=== PATIENT | male | born 2000 | race Two or more races ===

== ENCOUNTER 2024-09-20 19:07 | Emergency (ER) | payer OTHER ==
[~2024-09-20] VITALS: Ht 180.3 cm; Wt 75.0 kg
[2024-09-21] MEDS: NALOXONE HCL 0.4 MG/ML VIAL IV ONE (02:08)
[2024-09-21] MEDS: SODIUM CHLORIDE 0.9% 2,000 ML IV ONE (02:08)
[2024-09-21] MEDS: LORazepam 2MG/ML-1ML VIAL IV ONE (02:08)
[2024-09-21 02:14] VITALS: BP 127/90; PULSE 75; RESP 20; TEMP 98.8; O2SAT 96
--- NOTE | 2024-09-21 02:25 | ED.PDOC ---
History of Present Illness HPI Comments This patient is a 23-year-old male who arrives to the ED today via EMS due to alcohol and methamphetamine abuse. Patient initially complained of body pains, but at time of evaluation states he had no pain. Patient appears intoxicated and inebriated. Chief Complaint: Body Pain Time Seen by MD: 19:19 Primary Care Provider: unknown Reviewed Notes: Nurses Notes, Switchboard Receptionist Notes Allergies: Coded Allergies: NO KNOWN ALLERGIES (Unverified , 09/20/24) Information Source: Patient, Emergency Med Personnel Mode of Arrival: EMS Severity: Moderate Timing: Days Duration: Since onset Prehospital treatment: None Past Medical History PAST MEDICAL HISTORY: Denies Surgical History: Denies all surgeries Family History Family History: Reviewed,noncontributory to illness, No family hx of Cancer, No family hx of DM, No family hx of Heart gautam, No family hx of HTN, No family hx o fKidney gautam, No family hx of Liver gautam, No family hx of Lung gautam, No family hx of Stroke Social History Smoker: Non-Smoker Alcohol: Heavy Drugs: Methamphetamine Lives In: Homeless Constitutional: denies: chills, diaphoresis, fatigue, fever, malaise, sweats, weakness, others EENTM: denies: blurred vision, double vision, ear bleeding, ear discharge, ear drainage, ear pain, ear ringing, eye pain, eye redness, hearing loss, mouth pain, mouth swelling, nasal discharge, nose bleeding, nose congestion, nose pain, photophobia, tearing, throat pain, throat swelling, voice changes, others Respiratory: denies: cough, hemoptysis, orthopnea, SOB at rest, shortness of breath, SOB with excertion, stridor, wheezing, others Cardiovascular: denies: chest pain, dizzy spells, diaphoresis, Dyspnea on exertion, edema, irregular heart beat, left arm pain, lightheadedness, palpitations, PND, syncope, others Gastrointestinal: denies: abdomen distended, abdominal pain, blood streaked bowels, constipated, diarrhea, dysphagia, difficulty swallowing, hematemesis, melena, nausea, poor appetite, poor fluid intake, rectal bleeding, rectal pain, vomiting, others Genitourinary: denies: burning, dysuria, flank pain, frequency, hematuria, incontinence, penile discharge, penile sore, pain, testicle pain, testicle swell ing, urgency, others Neurological: denies: dizziness, fainting, headache, left sided numbness, left sided weakness, numbness, paresthesia, pre-existing deficit, right sided numbness, right sided weakness, seizure, speech problems, tingling, tremors, weakness, others Musculoskeletal: denies: back pain, gout, joint pain, joint swelling, muscle pain, muscle stiffness, neck pain, others Integumetry: denies: bruises, change in color, change in hair/nails, dryness, laceration, lesions, lumps, rash, wounds, others Allergic/Immunocompromised: denies: Difficulty Healing, Frequent Infections, Hives, Itching, others Hematologic/Lymphatic: denies: anemia, blood clots, easy bleeding, easy bruising, swollen glands, others Endocrine: denies: excessive hunger, excessive sweating, excessive thirst, excessive urination, flushing, intolerance to cold, intolerance to heat, unexplained weight gain, unexplained weight loss, others Psychiatric: denies: anxiety, bipolar disorder, depression, hopeless, panic disorder, schizophrenia, sleepless, suicidal, others Unable to Obtain due to: Altered Mental Status (Due to alcohol and methamphetamine) Physical Exam General Appearance: Moderate Distress (Moderate distress due to altered mental status.), Normal HEENT: Normal ENT Inspection, Pharynx Normal, TMs Normal Neck: Full Range of Motion, Non-Tender, Normal, Normal Inspection Respiratory: Chest Non-Tender, Lungs Clear, No Accessory Muscle Use, No Respiratory Distress, Normal Breath Sounds Cardiovascular: No Edema, No JVD, No Murmur, No Gallop, Normal Peripheral Pulses, Regular Rate/Rhythm Breast Exam: Deferred Gastrointestinal: No Organomegaly, Non Tender, No Pulsatile Mass, Normal Bowel Sounds, Soft Genitalia: Deferred Pelvic: Deferred Rectal: Deferred Extremities: No calf tenderness, Normal capillary refill, Normal inspection, Normal range of motion, Non-tender, No pedal edema Neurologic: Alert, No Motor Deficits, No Sensory Deficits Cerebellar Function: NOT DONE Reflexes: NOT DONE Skin: Dry, Normal Color, Warm Lymphatic: No Adenopathy Was a procedure done? Was a procedure done?: No Differential Dx Considerations may include: Alcohol abuse, illicit drug abuse X-Ray, Labs, Meds, VS Vital Signs Date Time Temp Pulse Resp B/P (MAP) Pulse Ox O2 Delivery O2 Flow Rate FiO2 1/4/25 02:14 98.8 75 20 127/90 (102) 96 98.8 09/20/24 19:09 97.7 107 18 130/72 (91) 98 Current Medications Medications (Trade) Dose Ordered Sig/Alex Route Start Time Stop Time Status Last Admin Lorazepam (Ativan Inj) 1 mg PRN ONCE IV 09/20/24 19:30 09/20/24 19:48 DC 09/21/24 02:08 X-Ray, Labs, Meds, VS Comment Patient was provided with fluids and additional medication and will be discharged from the facility once stable. Time of 1ST Reevaluation: 02:23 Reevaluation 1ST: Improved Consultation: PCP Patient Education/Counseling: Diagnosis, Treatment Family Education/Counseling: Diagnosis, Treatment Departure 1 Departure Time of Disposition: 02:24 Impression: Primary Impression: Alcohol abuse Additional Impression: Methamphetamine abuse Disposition: 01 HOME / SELF CARE / HOMELESS Condition: Fair Discharged With: Self Critical Care Note Critical Care Time?: No Stability Stability form required: No Heart Score Heart Score: Heart Score Response (Comments) Value History N/A 0 EKG N/A 0 Age N/A 0 Risk Factors N/A 0 Troponin N/A 0 Total 0 PALLAVI MA PAC Sep 21, 2024 02:25
[2024-09-22] MEDS ORDERED: OLAN20TA PO (01:31)
== END 2024-09-21 03:15 | disposition home or self-care (01) ==
LOC: ER 19:07 → EDBD 19:07 → ER 09-21 03:15
DX: F10.10 Alcohol abuse, uncomplicated (principal); F15.10 Other stimulant abuse, uncomplicated; Z59.00 Homelessness unspecified; Y90.9 Presence of alcohol in blood, level not specified
CPT/HCPCS: 96374; 99283; J2060

== ENCOUNTER 2024-09-21 12:24 | Inpatient (IN) | payer OTHER ==
[~2024-09-21] VITALS: Ht 182.9 cm; Wt 70.5 kg
--- NOTE | 2024-09-21 13:14 | ED.PDOC ---
Musculoskeletal HPI Comments HPI: Poor Historian. 23 Y M ELIEZER with PMHX of HIV, Schizophrenia, ADD, and Depression presents to the ED with CC of right arm weakness. Per, EMS patient called EMS from across that street from hospital and c/o right arm weakness and inability to move arm properly. Patient was [facility] seen at [facility] on 09/[facility]24 for DX: Methamphetamine abuse/ ETOH abuse. Patient denies using any illicit drugs or consumption of ETOH since last discharge. Patient denies chills, body aches, fever, or N/V/D. Patient is noncompliant with any of his medications. Patient is able to raise bilateral upper extremities against gravity and hold it. Decreased muscle strength on the right wrist. Patient is neurovascularly intact in the affected extremity. Radial pulses palpable. Later I inquired with the PA who saw the patient Dimitri. He said that when he saw the patient he also had some right upper extremity decreased motor and they suspected a arm nerve palsy. He observed the patient in the ED and said that the symptoms have resolved and he was then discharged home. VITALS: T:98.0 HR:84 RR:20 O2:98 BP:106/72 SOCIAL HX: DENIES TOBACCO USAGE YES TO ETOH CONSUMPTION YES TO ILLICIT DRUG USE SHX: DENIES ALL PMHX: HIV, Schizophrenia, ADD, and Depression, polysubstance abuse ALLERGIES: NKA REVIEW OF SYSTEMS: CONSTITUTIONAL: Denies acute: fever, diaphoresis, chills, generalized weakness. HEAD: Denies acute: headache, photophobia Eyes: Denies acute: Double vision, vision loss, eye pain, eye discharge. EARS: Denies acute: tinnitus, hearing loss, ear discharge, ear pain, THROAT: Denies acute: sore throat, swelling, difficulty swallowing , pain with swallowing, change in voice. NECK: Denies acute: neck pain, neck swelling, stiff neck. HEART: Denies acute : chest pain, palpitations, LUNGS: Denies acute: SOB, wheezing, cough, hemoptysis ABDOMEN: Denies acute: abdominal pain, Nausea, Vomiting, diarrhea, melena , hematemesis, hematochezia SKIN: Denies acute: rash, redness, lesions, itchiness. EXTREMITIES: Denies acute: calf pain, numbness, tingling, weakness, denies pain in extremity. Denies acute: Low back pain. Neuro: Denies acute: motor or sensory focal neurological deficit, tremors, seizure like activity, confusion, dizziness, change in mental status, loss of bowel or bladder function, cauda equina like symptoms. : Denies acute: dysuria, hematuria, flank pain, increase in urinary frequency. PSYCH: Denies acute: hallucination, suicidal ideation, homicidal ideation. PHYSICAL EXAM: General: no acute distress, awake and alert. Head: normocephalic, atraumatic. Neck: supple, trachea is midline, no swelling. Throat: Normal phonation. Eyes:, no erythema, no purulent discharge, no proptosis, no icterus. Heart: regular rate, regular rhythm, no significant murmur appreciated. Lungs: no apparent respiratory distress, Able to speak in full sentences. No wheezing, no rhonchi, no crackles. No stridors Clear to auscultation bilaterally. Abdomen: non tender to palpation, non distended, soft, no guarding, no rebound, + bowel sounds. Neuro: Awake, Alert, oriented to name, self, situation, follows commands GCS=15. Speech is normal. Skin: no petechia, no purpura, no cyanosis, non-pale, not jaundice. Lower extremities: --no - Pitting edema no deformity, no focal swelling, no calf TTP. Makes eye contact. moves all four extremities. Face: no apparent facial droop. Ambulating in the ED independently. Stroke: No pronator drift. PERRLA, EOM-I CN 2-12 are grossly intact, No nystagmus. No nuchal rigidity, Kernig's sign, Brudzinski's sign, no meningeal signs. Chief Complaint: Upper Extremity Time Seen by MD: 12:30 Primary Care Provider: NONE Reviewed Notes: Nurses Notes, Medications, Allergies Allergies: Coded Allergies: NO KNOWN ALLERGIES (Unverified , 09/20/24) Information Source: Patient Mode of Arrival: EMS Location: Right Was a procedure done? Was a procedure done?: No X-Ray, Labs, Meds, VS Vital Signs Date Time Temp Pulse Resp B/P (MAP) Pulse Ox O2 Delivery O2 Flow Rate FiO2 09/21/24 21:44 97.4 78 16 117/25 (55) 98 97.4 09/21/24 12:35 97.8 84 20 106/72 (83) 98 Lab Test 09/21/24 12:57 Range/Units White Blood Count 6.2 4.4-10.8 10^3/uL Red Blood Count 4.27 L 4.5-5.90 10^6/uL Hemoglobin 12.2 L 13.5-17.5 g/dL Hematocrit 36.1 L 41.0-53.0 % Mean Corpuscular Volume 84.5 80.0-100.0 fL Mean Corpuscular Hemoglobin 28.5 28.0-32.0 pg Mean Corpuscular Hemoglobin Concent 33.7 32.0-36.0 g/dL Red Cell Distribution Width 16.2 H 11.8-14.3 % Platelet Count 235 140-450 10^3/uL Mean Platelet Volume 7.8 6.9-10.8 fL Neutrophils (%) (Auto) 39.9 37.0-80.0 % Lymphocytes (%) (Auto) 39.4 10.0-50.0 % Monocytes (%) (Auto) 12.1 H 0.0-12.0 % Eosinophils (%) (Auto) 7.7 H 0.0-7.0 % Basophils (%) (Auto) 0.9 0.0-2.0 % Neutrophils # (Auto) 2.5 1.6-8.6 10 ^3/uL Lymphocytes # (Auto) 2.5 0.4-5.4 10 ^3/uL Monocytes # (Auto) 0.8 0-1.3 10 ^3/uL Eosinophils # (Auto) 0.5 0-0.8 10 ^3/uL Basophils # (Auto) 0.1 0-0.2 10 ^3/uL Nucleated Red Blood Cells 0.1 % Sodium Level 138 136-145 mmol/L Potassium Level 3.6 3.5-5.1 mmol/L Chloride Level 105 98-107 mmol/L Carbon Dioxide Level 26 20-31 mmol/L Anion Gap 7 5-15 Blood Urea Nitrogen 18 9-23 mg/dL Creatinine 1.01 0.700-1.30 mg/dL Glomerular Filtration Rate Calc 106 >90 mL/min BUN/Creatinine Ratio 17.8 10.0-20.0 Serum Glucose 116 H 74-106 mg/dL Lactic Acid Level 1.5 0.4-2.0 mmol/L Calcium Level 8.9 8.7-10.4 mg/dL Magnesium Level 2.0 1.6-2.6 mg/dL Total Bilirubin 0.8 0.2-1.0 mg/dL Aspartate Amino Transferase (AST) 267 H 13-40 U/L Alanine Aminotransferase (ALT) 440 H 7-40 U/L Alkaline Phosphatase 143 H 46-116 U/L Creatine Kinase 600 H 46-171 U/L Total Protein 7.6 5.7-8.2 g/dL Albumin 3.5 3.2-4.8 g/dL Plasma/Serum Blood Alcohol < 3.0 <10 mg/dL [place] [address] Ph: [phone] DIAGNOSTIC IMAGING Diagnostic Imaging Report : [id number] Signed PATIENT: ANSHU MÁRQUEZ ACCT: [id number] UNIT: [id number] : 2000 LOC: ER ROOM / BED: / AGE / SEX: 23 / M ADM STATUS: REG ER SERVICE 1244 ORDERING PHYSICIAN: MURRAY MOORE DO PROCEDURE(s): RWRI - R WRIST 3+ VIEW XRAY REASON: weak ORDER NUMBER(s): [id number], ACCESSION NUMBER(s): [id number] EXAM: XY R WRIST 3+ VIEW XRAY CLINICAL HISTORY: weak COMPARISON: None TECHNIQUE: XY R WRIST 3+ VIEW XRAY Findings/Impression: 3 views of the right wrist. There is no evidence of an acute fracture, dislocation, blastic, or lytic lesions. No radiopaque foreign bodies. No joint effusion or superficial soft tissue abnormalities. ATED BY: CAREN ZELAYA DO DICTATED DATE/TIME: 09/21/241423 SIGNED BY: CAREN ZELAYA DO SIGNED DATE/TIME: 09/21/24 142 CC: Time of 1ST Reevaluation: 01:00 Reevaluation 1ST: Unchanged Patient Education/Counseling: Diagnosis, Treatment Family Education/Counseling: No Family Present Comments Patient presented with --------- patient was found with the above mentioned diagnosis. the following medications were ordered: the following tests were ordered: Patient ED course and VS have been stabilized. Patient has been reassessed in the ED and remained in a stable condition. Pertinent incidental findings were discussed with the patient and/or family. Patient/family voices understanding and is agreeable with plan. Patient has been observed in the ED adequate length of time to insure improvement/stability. Escalation of care considered: Consideration of escalation to observation or admission Patient was ADMITTED to the medicine team for further evaluation and treatment of their presentation. Patient was discharged. All the reports of any imaging studies that were ordered by myself were reviewed by myself. Departure 1 Departure Time of Disposition: 19:23 Impression: Primary Impression: Radial nerve palsy Additional Impressions: Right arm weakness Elevated LFTs Rhabdomyolysis Disposition: ADMITTED INPATIENT Admit to: Tele Condition: Guarded Additional Instructions: [place] [address] Ph: [phone] DIAGNOSTIC IMAGING Diagnostic Imaging Report : [id number] Signed PATIENT: ANSHU MÁRQUEZ ACCT: [id number] UNIT: [id number] : 2000 LOC: ER ROOM / BED: / AGE / SEX: 23 / M ADM STATUS: REG ER SERVICE 1244 ORDERING PHYSICIAN: MURRAY MOORE DO PROCEDURE(s): RWRI - R WRIST 3+ VIEW XRAY REASON: weak ORDER NUMBER(s): [id number], ACCESSION NUMBER(s): [id number] EXAM: XY R WRIST 3+ VIEW XRAY CLINICAL HISTORY: weak COMPARISON: None TECHNIQUE: XY R WRIST 3+ VIEW XRAY Findings/Impression: 3 views of the right wrist. There is no evidence of an acute fracture, dislocation, blastic, or lytic lesions. No radiopaque foreign bodies. No joint effusion or superficial soft tissue abnormalities. ATED BY: CAREN ZELAYA DO DICTATED DATE/TIME: 09/21/241423 SIGNED BY: CAREN ZELAYA DO SIGNED DATE/TIME: 09/21/241423 CC: Discharged With: Self Stability Stability form required: No I personally scribed for MURRAY MOORE DO ([email or web address]) on 09/21/24 at 13:14. Electronically submitted by Jayne Villa ([email or web address]). I personally scribed for MURRAY MOORE DO ([email or web address]) on 09/21/24 at 14:33. Electronically submitted by Jayne Villa ([email or web address]). MURRAY MOORE DO Sep 21, 2024 13:14
[2024-09-21 13:16] LABS: Basophils # (auto) 0.1 10 ^3/uL (0-0.2); Basophils % (auto) 0.9 % (0.0-2.0); Eosinophils # (auto) 0.5 10 ^3/uL (0-0.8); Eosinophils % (auto) 7.7 % (0.0-7.0); Hematocrit 36.1 % (41.0-53.0); Hemoglobin 12.2 g/dL (13.5-17.5); Lymphocytes # (auto) 2.5 10 ^3/uL (0.4-5.4); Lymphocytes % (auto) 39.4 % (10.0-50.0); Mean Corpuscular Hemoglobin 28.5 pg (28.0-32.0); Mean Corpuscular Hgb Conc. 33.7 g/dL (32.0-36.0); Mean Corpuscular Volume 84.5 fL (80.0-100.0); Monocytes # (auto) 0.8 10 ^3/uL (0-1.3); Monocytes % (auto) 12.1 % (0.0-12.0); Neutrophils # (auto) 2.5 10 ^3/uL (1.6-8.6); Neutrophils % (auto) 39.9 % (37.0-80.0); Nucleated Red Blood Cells % 0.1 %; Platelet Count (auto) 235 10^3/uL (140-450); Red Blood Cells 4.27 10^6/uL (4.5-5.90); Red Cell Distribution Width 16.2 % (11.8-14.3); White Blood Cell 6.2 10^3/uL (4.4-10.8)
[2024-09-21 13:33] LABS: Albumin 3.5 g/dL (3.2-4.8); Anion Gap 7 (5-15); BUN/Creatinine Ratio 17.8 (10.0-20.0); Blood Urea Nitrogen 18 mg/dL (9-23); Calcium 8.9 mg/dL (8.7-10.4); Carbon Dioxide 26 mmol/L (20-31); Chloride 105 mmol/L (98-107); Potassium 3.6 mmol/L (3.5-5.1); Sodium 138 mmol/L (136-145)
[2024-09-21 13:34] LABS: Bilirubin, Total 0.8 mg/dL (0.2-1.0); Total Protein 7.6 g/dL (5.7-8.2)
[2024-09-21 13:37] LABS: Alanine Aminotransferase 440 U/L (7-40); Alkaline Phosphatase 143 U/L (46-116); Aspartate Aminotransferase 267 U/L (13-40); Blood Alcohol < 3.0 mg/dL (<10); Creatine Kinase IFCC 600 U/L (46-171); Glucose 116 mg/dL (74-106)
--- NOTE | 2024-09-21 14:26 | DVH ---
EXAM: XY R WRIST 3+ VIEW XRAY CLINICAL HISTORY: weak COMPARISON: None TECHNIQUE: XY R WRIST 3+ VIEW XRAY Findings/Impression: 3 views of the right wrist. There is no evidence of an acute fracture, dislocation, blastic, or lytic lesions. No radiopaque foreign bodies. No joint effusion or superficial soft tissue abnormalities.
--- NOTE | 2024-09-21 16:28 | DVH ---
EXAM: CT HEAD WITHOUT CONTRAST INDICATION: R arm palsy TECHNIQUE: CT of the head without intravenous contrast. Radiation Dose Information: CT Dose: CTDI volume is 56.9 mGy. Dose-length product is 912.09 mGy*cm The dose indicators for CT are the volume Computed Tomography (CT) Dose Index (CTDIvol) and the Dose Length Product (DLP), and are measured in units of mGy and mGy-cm, respectively. These indicators are not patient dose, but values generated from the CT scanner acquisition factors. The report includes radiation exposure data for exposures received during this examination. COMPARISON: None FINDINGS: There is no evidence of acute intracranial hemorrhage, extra-axial collection, mass effect, midline s hift, herniation or hydrocephalus. The ventricles, sulci and cisterns are age appropriate. The ortiz-white differentiation is intact. Patchy periventricular and subcortical white matter hypoattenuation is nonspecific but may be related to small vessel ischemic disease. The visualized paranasal sinuses and mastoid air cells are clear. The surrounding soft tissues and osseous structures are unremarkable. IMPRESSION: 1. No acute intracranial hemorrhage. 2. No CT findings of territorial ischemia. HS:Y
--- NOTE | 2024-09-21 16:33 | DVH ---
HS:Y EXAM: CT CERVICAL WITHOUT CONTRAST INDICATION: R arm palsy EXAM DATE: 09/21/2024 04:09 PM COMPARISON: None TECHNIQUE: Multiple axial CT images of the cervical spine were obtained using bone algorithm. Axial a nd coronal reformatting was done. Bone and soft tissue windows were reviewed. Radiation Dose Information: CT Dose: CTDI volume is 22.92 mGy. Dose-length product is 556.25 mGy*cm FINDINGS: The cervical alignment is intact. No acute cervical spine fracture is identified. The vertebral body heights are intact. No suspicious osseous lesions are identified. There is reversal of the normal cervical lordotic curve. No significant degenerative changes are identified. There is no prevertebral soft tissue swelling. IMPRESSION: 1. No evidence of acute cervical spine fracture or traumatic malalignment. 2. Reversal of the normal cervical lordotic curve. All CT scans at this medical facility are performed using dose modulation techniques as appropriate t o a performed exam including the following: Automated exposure control was utilized; adjustment of th e MA and/or KV according to patient size; and use of iterative reconstruction technique. HS:Y
[2024-09-21] MEDS: SODIUM CHLORIDE 0.9% 1,000 ML IV ONE (17:46)
[2024-09-21] MEDS ORDERED: IBUPROFEN 600 MG TAB PO PRN (20:45)
[2024-09-21] MEDS ORDERED: ONDANSETRON HCL 4 MG/2 ML VIAL IV PRN (20:45)
[2024-09-21] MEDS ORDERED: MORPHINE SULFATE INJ 2 MG/ml SYRG IV PRN ×2 (20:45→23:00)
[2024-09-21] MEDS ORDERED: DOCUSATE SOD 100 MG CAP PO PRN (20:45)
[2024-09-21] MEDS ORDERED: HYDROcodone-ACET 5/325MG TAB PO PRN (20:45)
[2024-09-21] MEDS: SODIUM CHLORIDE 0.9% 1,000 ML IV SCH (20:45)
--- NOTE | 2024-09-21 22:51 | DVHHP2 ---
History of Present Illness Reason for Visit: Right arm weakness History of Present Illness The patient is a 23-year-old male with past medical history of HIV, ADD, schizophrenia, polysubstance abuse, and depression who presented to [facility] ED with complaint of right arm weakness. As reported by EMS, patient called across the street from the hospital complaining of right arm weakness and inability to move and properly. Patient was last seen at [facility], on 09/20/24 for diagnosis of Methamphetamine abuse and ETOH abuse. Patient was seen and evaluated in the ED, laboratory data shows WBC 6.2, platelets 235, sodium 138, potassium 3.6, BUN 18, creatinine 1.01, GFR 106, glucose 116, AST 267, ALT 440, CK 600, blood pressure 106/72, heart rate 84, temperature 97.8 F, O2 saturation 98% on room air. Head CT showed no acute intracranial hemorrhage. Please see medication orders section in the computer. On my assessment, patient denies chest pain, no headache, no dizziness, no diaphoresis, no shortness of breaths, no nausea, no vomiting, no fever, no chills. Patient was admitted for further evaluation and medical management. Past Medical History HIV, Schizophrenia, ADD, Depression, polysubstance abuse Past Surgical History Denies all surgeries Family History Reviewed, noncontributory to the management of this case. Past Social History The patient lives at home, denies smoking, alcohol or illicit drugs abuse. Review of Systems Constitutional: No: Fever, Chills, Sweats, Weakness, Malaise, Other Eyes: No: Pain, Vision change, Conjunctivae inflammation, Eyelid inflammation, Other, Redness ENT: No: Ear pain, Ear discharge, Nose pain, Nose discharge, Nose congestion, Mouth pain, Mouth swelling, Throat pain, Throat swelling, Other Respiratory: No: Cough, Dry, Shortness of breath, SOB with excertion, Wheezing, Hemoptysis, Pleuritic Pain, Sputum, Wheezing, Other Cardiovascular: No: Chest Pain, Palpitations, Orthopnea, Paroxysmal Noc. Dyspnea, Edema, Lt Headedness, Other Gastrointestinal: No: Nausea, Vomiting, Abdominal Pain, Diarrhea, Constipation, Melena, Hematochezia, Other Genitourinary: No Dysuria, No Frequency, No Incontinence, No Hematuria, No Retention, No Other Musculoskeletal: other (Right arm weakness); No: neck pain, shoulder pain, arm pain, back pain, hand pain, leg pain, foot pain Skin: No: Rash, Lesions, Jaundice, Bruising, Other Neurological: No: Weakness, Numbness, Incoordination, Change in speech, Confusion, Seizures, Other Allergies: Coded Allergies: NO KNOWN ALLERGIES (Unverified , 09/20/24) Medications Current Medications Medications Dose Ordered Sig/Alex Route Start Time Stop Time Status Last Admin Dose Admin Sodium Chloride 1,000 ml @ 60 mls/hr [id number] IV 09/21/24 20:45 Acetaminophen/ Hydrocodone Bitart 1 tab Q4HP PRN PO 09/21/24 20:45 Ondansetron HCl 4 mg Q4HP PRN IV 09/21/24 20:45 Docusate Sodium 100 mg BIDPRN PRN PO 09/21/24 20:45 Morphine Sulfate 2 mg Q4HPRN PRN IV 09/21/24 20:45 Ibuprofen 600 mg Q6HP PRN PO 09/21/24 20:45 Exam Vital Signs Vital Signs Date Time Temp Pulse Resp B/P (MAP) Pulse Ox O2 Delivery O2 Flow Rate FiO2 09/21/24 21:44 97.4 78 16 117/25 (55) 98 97.4 General Appearance: Alert, Oriented X3, Cooperative, No acute distress HEENT: Atraumatic, PERRLA, EOMI, Mucous membr. moist/pink Respiratory: Clear to auscultation, Normal air movement Cardiovascular: Regular rate, Normal S1, Normal S2, No murmurs Abdominal: Normal bowel sounds, Soft, No tenderness, No hepatospenomegaly, No masses Extremities: No clubbing, No cyanosis, No edema, Normal pulses, No tenderness/swelling, Other (Right arm weakness) Skin: No rashes, No breakdown, No significant lesion Neuro: Normal gait, Normal speech, Strength at 5/5 X4 ext, Normal tone, Sensation intact, Cranial nerves 3-12 NL, Reflexes 2+ Psych/Mental Status: Mental status NL, Mood NL, Other (History of schizophrenia and depression) Labs/Xrays Labs Test 09/21/24 12:57 Range/Units White Blood Count 6.2 4.4-10.8 10^3/uL Red Blood Count 4.27 L 4.5-5.90 10^6/uL Hemoglobin 12.2 L 13.5-17.5 g/dL Hematocrit 36.1 L 41.0-53.0 % Mean Corpuscular Volume 84.5 80.0-100.0 fL Mean Corpuscular Hemoglobin 28.5 28.0-32.0 pg Mean Corpuscular Hemoglobin Concent 33.7 32.0-36.0 g/dL Red Cell Distribution Width 16.2 H 11.8-14.3 % Platelet Count 235 140-450 10^3/uL Mean Platelet Volume 7.8 6.9-10.8 fL Neutrophils (%) (Auto) 39.9 37.0-80.0 % Lymphocytes (%) (Auto) 39.4 10.0-50.0 % Monocytes (%) (Auto) 12.1 H 0.0-12.0 % Eosinophils (%) (Auto) 7.7 H 0.0-7.0 % Basophils (%) (Auto) 0.9 0.0-2.0 % Neutrophils # (Auto) 2.5 1.6-8.6 10 ^3/uL Lymphocytes # (Auto) 2.5 0.4-5.4 10 ^3/uL Monocytes # (Auto) 0.8 0-1.3 10 ^3/uL Eosinophils # (Auto) 0.5 0-0.8 10 ^3/uL Basophils # (Auto) 0.1 0-0.2 10 ^3/uL Nucleated Red Blood Cells 0.1 % Sodium Level 138 136-145 mmol/L Potassium Level 3.6 3.5-5.1 mmol/L Chloride Level 105 98-107 mmol/L Carbon Dioxide Level 26 20-31 mmol/L Anion Gap 7 5-15 Blood Urea Nitrogen 18 9-23 mg/dL Creatinine 1.01 0.700-1.30 mg/dL Glomerular Filtration Rate Calc 106 >90 mL/min BUN/Creatinine Ratio 17.8 10.0-20.0 Serum Glucose 116 H 74-106 mg/dL Lactic Acid Level 1.5 0.4-2.0 mmol/L Calcium Level 8.9 8.7-10.4 mg/dL Magnesium Level 2.0 1.6-2.6 mg/dL Total Bilirubin 0.8 0.2-1.0 mg/dL Aspartate Amino Transferase (AST) 267 H 13-40 U/L Alanine Aminotransferase (ALT) 440 H 7-40 U/L Alkaline Phosphatase 143 H 46-116 U/L Creatine Kinase 600 H 46-171 U/L Total Protein 7.6 5.7-8.2 g/dL Albumin 3.5 3.2-4.8 g/dL Plasma/Serum Blood Alcohol < 3.0 <10 mg/dL PATIENT: ANSHU MÁRQUEZ ACCT: [id number] UNIT: [id number] : 2000 LOC: ER ROOM / BED: / AGE / SEX: 23 / M ADM STATUS: REG ER SERVICE [id number] ORDERING PHYSICIAN: MURRAY MOORE DO PROCEDURE(s): HWOCT - HEAD WITHOUT CONTRAST REASON: R arm palsy ORDER NUMBER(s): [id number], ACCESSION NUMBER(s): [id number] EXAM: CT HEAD WITHOUT CONTRAST INDICATION: R arm palsy TECHNIQUE: CT of the head without intravenous contrast. Radiation Dose Information: CT Dose: CTDI volume is 56.9 mGy. Dose-length product is 912.09 mGy*cm The dose indicators for CT are the volume Computed Tomography (CT) Dose Index (CTDIvol) and the Dose Length Product (DLP), and are measured in units of mGy and mGy-cm, respectively. These indicators are not patient dose, but values generated from the CT scanner acquisition factors. The report includes radiation exposure data for exposures received during this examination. COMPARISON: None FINDINGS: There is no evidence of acute intracranial hemorrhage, extra-axial collection, mass effect, midline shift, herniation or hydrocephalus. The ventricles, sulci and cisterns are age appropriate. The ortiz-white differentiation is intact. Patchy periventricular and subcortical white matter hypoattenuation is nonspecific but may be related to small vessel ischemic disease. The visualized paranasal sinuses and mastoid air cells are clear. The surrounding soft tissues and osseous structures are unremarkable. IMPRESSION: 1. No acute intracranial hemorrhage. 2. No CT findings of territorial ischemia. ORDERING PHYSICIAN: MURRYA MOORE DO PROCEDURE(s): CS2 - CERVICAL WITHOUT CONTRAST REASON: R arm palsy ORDER NUMBER(s): [id number], ACCESSION NUMBER(s): [id number] HS:Y EXAM: CT CERVICAL WITHOUT CONTRAST INDICATION: R arm palsy EXAM DATE: 09/21/2024 04:09 PM COMPARISON: None TECHNIQUE: Multiple axial CT images of the cervical spine were obtained using bone algorithm. Axial and coronal reformatting was done. Bone and soft tissue windows were reviewed. Radiation Dose Information: CT Dose: CTDI volume is 22.92 mGy. Dose-length product is 556.25 mGy*cm FINDINGS: The cervical alignment is intact. No acute cervical spine fracture is identified. The vertebral body heights are intact. No suspicious osseous lesions are identified. There is reversal of the normal cervical lordotic curve. No significant degenerative changes are identified. There is no prevertebral soft tissue swelling. IMPRESSION: 1. No evidence of acute cervical spine fracture or traumatic malalignment. 2. Reversal of the normal cervical lordotic curve. ORDERING PHYSICIAN: MURRAY MOORE DO PROCEDURE(s): RWRI - R WRIST 3+ VIEW XRAY REASON: weak ORDER NUMBER(s): [id number], ACCESSION NUMBER(s): [id number] EXAM: XY R WRIST 3+ VIEW XRAY CLINICAL HISTORY: weak COMPARISON: None TECHNIQUE: XY R WRIST 3+ VIEW XRAY Findings/Impression: 3 views of the right wrist. There is no evidence of an acute fracture, dislocation, blastic, or lytic lesions. No radiopaque foreign bodies. No joint effusion or superficial soft tissue abnormalities. Assessment/Plan Assessment/Plan Radial nerve palsy Right arm weakness Rhabdomyolysis Elevated liver enzymes Plan 1. Admit to med surge unit 2. Breathing treatment 3. Pain control management 4. Management of fluids and electrolytes 5. Consultation for hospitalist 6. Diagnostic tests head CT 7. DVT prophylaxis-on SCDs 8. Repeat labs CBC, CMP in a.m. 9. Continue with current medical management 10. Treatment plan discussed with patient and RN. Patient verbalized understanding. Plan discussed with: Patient, Other (RN) My Orders Orders - JUDY DE LA CRUZ DNP Procedure Category Date Status Time * Gi Dvh Park Keeper CONS 09/21/24 Transmitted 20:34 Allergies JESSIKA 09/21/24 In Process 20:34 Code Status CODE 09/21/24 Transmitted 20:34 2 Gm Sodium Diet DIET 09/22/24 Transmitted Breakfast Sodium Chloride 0.9% PHA 09/21/24 In Process 20:45 Oxygen Per Hour RT 09/21/24 Transmitted 20:34 Hydrocodone-Acet PHA 09/21/24 In Process 5/325mg Tab ([place] 20:45 Ondansetron Hcl PHA 09/21/24 In Process (Zofran) 20:45 Docusate Sodium PHA 09/21/24 In Process Capsule (Colace 20:45 Complete Blood Count LAB 09/22/24 Verified 04:00 Comprehensive LAB 09/22/24 Verified Metabolic Panel 04:00 Condition: Serious JESSIKA 09/21/24 In Process 20:34 Bedrest With Bathroom JESSIKA 09/21/24 In Process Privileg 20:34 Morphine Sulfate PHA 09/21/24 In Process Injection 20:45 Sequential JESSIKA 09/21/24 In Process Compression Device Ibuprofen Tablet PHA 09/21/24 In Process (Motrin Tablet) 20:45 Admit ADMIT 09/21/24 Verified 22:49 Nitroglycerin PHA 09/21/24 Verified Sublingual (Ntrostat 23:00 Morphine Sulfate PHA 09/21/24 Verified Injection 23:00 Notify Md Of Changes JESSIKA 09/21/24 Verified From Base 22:49 Emergency Dysrhythmia [facility] 09/21/24 Verified Protocol 22:49 Oxygen By Nasal RT 09/21/24 Verified Cannula 22:49 Problem List: (1) Radial nerve palsy (2) Right arm weakness (3) Rhabdomyolysis (4) Elevated liver enzymes Date of Service: Sep 21, 2024 Billing Provider: JUDY DE LA CRUZ DNP Common Visit Codes: [id number] INP/OBS CARE (HIGH) JUDY DE LA CRUZ DNP Sep 21, 2024 22:51
[2024-09-21] MEDS ORDERED: NITROGLYCERIN 0.4 MG SL TAB SL PRN (23:00)
[2024-09-22] VITALS (10 sets, daily range): BP systolic 94–113; BP diastolic 52–71; PULSE 60–98; RESP 16–20; TEMP 97.6–98.8; O2SAT 93–100
[2024-09-22] MEDS ORDERED: OLAN20TA PO (01:31)
[2024-09-22 06:54] LABS: Basophils # (auto) 0 10 ^3/uL (0-0.2); Basophils % (auto) 0.3 % (0.0-2.0); Eosinophils # (auto) 0.5 10 ^3/uL (0-0.8); Eosinophils % (auto) 9.9 % (0.0-7.0); Hematocrit 34.6 % (41.0-53.0); Hemoglobin 11.6 g/dL (13.5-17.5); Lymphocytes # (auto) 2.2 10 ^3/uL (0.4-5.4); Lymphocytes % (auto) 45.6 % (10.0-50.0); Mean Corpuscular Hemoglobin 28.6 pg (28.0-32.0); Mean Corpuscular Hgb Conc. 33.6 g/dL (32.0-36.0); Mean Corpuscular Volume 85.2 fL (80.0-100.0); Monocytes # (auto) 0.6 10 ^3/uL (0-1.3); Monocytes % (auto) 11.9 % (0.0-12.0); Neutrophils # (auto) 1.6 10 ^3/uL (1.6-8.6); Neutrophils % (auto) 32.3 % (37.0-80.0); Nucleated Red Blood Cells % 0.1 %; Platelet Count (auto) 200 10^3/uL (140-450); Red Blood Cells 4.06 10^6/uL (4.5-5.90); Red Cell Distribution Width 16.7 % (11.8-14.3); White Blood Cell 4.9 10^3/uL (4.4-10.8)
[2024-09-22 07:34] LABS: Anion Gap 5 (5-15); BUN/Creatinine Ratio 15.3 (10.0-20.0); Blood Urea Nitrogen 15 mg/dL (9-23); Calcium 8.9 mg/dL (8.7-10.4); Carbon Dioxide 26 mmol/L (20-31); Potassium 4.2 mmol/L (3.5-5.1); Sodium 140 mmol/L (136-145)
[2024-09-22 07:35] LABS: Albumin 3.3 g/dL (3.2-4.8); Bilirubin, Total 0.5 mg/dL (0.2-1.0); Total Protein 7.1 g/dL (5.7-8.2)
[2024-09-22 07:36] LABS: Alanine Aminotransferase 383 U/L (7-40); Alkaline Phosphatase 127 U/L (46-116); Aspartate Aminotransferase 226 U/L (13-40); Chloride 109 mmol/L (98-107); Glucose 116 mg/dL (74-106)
--- NOTE | 2024-09-22 11:57 | DVHINCON2 ---
Date of service: Sep 22, 2024 Referring Physician Kingston Johnson Reason for Consultation Elevated liver enzymes History of Present Illness The patient is a 23-year-old male with past medical history of HIV, ADD, schizophrenia, polysubstance abuse, and depression who presented to [facility] ED with complaint of right arm weakness. Patient has a history of methamphetamine and alcohol abuse. Head CT; cervical neck CT, right wrist x- ray was negative. GI was consulted because elevation in liver enzymes which are trending down. His creatinine kinase was also elevated suggestive of possible mild rhabdomyolysis Past Medical History Past Medical History HIV, Schizophrenia, ADD, Depression, polysubstance abuse Past Surgical History Past Surgical History Denies all surgeries Family History: Patient reports no known family medical history. Allergies: Coded Allergies: NO KNOWN ALLERGIES (Unverified , 09/20/24) Home Meds Reported Medications Olanzapine (Zyprexa) 20 Mg Tab, 1 TAB PO QPM, #30 TAB 09/22/24 Current Medications Current Medications Medications (Trade) Dose Ordered Sig/Alex Route PRN Reason Start Time Stop Time Status Last Admin Sodium Chloride 1,000 ml @ 60 mls/hr [id number] IV 09/21/24 20:45 Acetaminophen/ Hydrocodone Bitart ([place] 5/325MG Tab) 1 tab Q4HP PRN PO MODERATE PAIN (4-6 PAIN SCALE) 09/21/24 20:45 Ondansetron HCl (Zofran) 4 mg Q4HP PRN IV NAUSEA / VOMITING 09/21/24 20:45 Docusate Sodium (Colace Capsule) 100 mg BIDPRN PRN PO FOR CONSTIPATION 09/21/24 20:45 Morphine Sulfate 2 mg Q4HPRN PRN IV SEVERE PAIN (7-10 PAIN SCALE) 09/21/24 20:45 Ibuprofen (Motrin Tablet) 600 mg Q6HP PRN PO PAIN SCALE 1-3 OR TEMP>100.4 09/21/24 20:45 Nitroglycerin (Ntrostat Sublingual) 0.4 mg Q5MINP PRN SL FOR CHEST PAIN 09/21/24 23:00 Morphine Sulfate 2 mg Q30M PRN IV FOR CHEST PAIN 09/21/24 23:00 Vital Signs Vital Signs Date Time Temp Pulse Resp B/P (MAP) Pulse Ox O2 Delivery O2 Flow Rate FiO2 09/22/24 09:00 97.6 77 20 96/54 (68) 98 97.6 09/22/24 01:33 Room Air* 0 21 Physical Exam General Appearance: Alert, Oriented X3, Cooperative, No acute distress HEENT: Atraumatic, PERRLA, EOMI, Mucous membr. moist/pink Respiratory: Clear to auscultation, Normal air movement Cardiovascular: Regular rate, Normal S1, Normal S2, No murmurs Abdominal: Normal bowel sounds, Soft, No tenderness, No hepatospenomegaly, No masses Extremities: No clubbing, No cyanosis, No edema, Normal pulses, No tenderness/swelling, Other (Right arm weakness) Labs/Diagnostic Data Labs Test 09/22/24 06:39 09/21/24 12:57 Range/Units White Blood Count 4.9 4.4-10.8 10^3/uL Red Blood Count 4.06 L 4.5-5.90 10^6/uL Hemoglobin 11.6 L 13.5-17.5 g/dL Hematocrit 34.6 L 41.0-53.0 % Mean Corpuscular Volume 85.2 80.0-100.0 fL Mean Corpuscular Hemoglobin 28.6 28.0-32.0 pg Mean Corpuscular Hemoglobin Concent 33.6 32.0-36.0 g/dL Red Cell Distribution Width 16.7 H 11.8-14.3 % Platelet Count 200 140-450 10^3/uL Mean Platelet Volume 7.6 6.9-10.8 fL Neutrophils (%) (Auto) 32.3 L 37.0-80.0 % Lymphocytes (%) (Auto) 45.6 10.0-50.0 % Monocytes (%) (Auto) 11.9 0.0-12.0 % Eosinophils (%) (Auto) 9.9 H 0.0-7.0 % Basophils (%) (Auto) 0.3 0.0-2.0 % Neutrophils # (Auto) 1.6 1.6-8.6 10 ^3/uL Lymphocytes # (Auto) 2.2 0.4-5.4 10 ^3/uL Monocytes # (Auto) 0.6 0-1.3 10 ^3/uL Eosinophils # (Auto) 0.5 0-0.8 10 ^3/uL Basophils # (Auto) 0 0-0.2 10 ^3/uL Nucleated Red Blood Cells 0.1 % Sodium Level 140 136-145 mmol/L Potassium Level 4.2 3.5-5.1 mmol/L Chloride Level 109 H 98-107 mmol/L Carbon Dioxide Level 26 20-31 mmol/L Anion Gap 5 5-15 Blood Urea Nitrogen 15 9-23 mg/dL Creatinine 0.98 0.700-1.30 mg/dL Glomerular Filtration Rate Calc 110 >90 mL/min BUN/Creatinine Ratio 15.3 10.0-20.0 Serum Glucose 116 H 74-106 mg/dL Calcium Level 8.9 8.7-10.4 mg/dL Total Bilirubin 0.5 0.2-1.0 mg/dL Aspartate Amino Transferase (AST) 226 H 13-40 U/L Alanine Aminotransferase (ALT) 383 H 7-40 U/L Alkaline Phosphatase 127 H 46-116 U/L Total Protein 7.1 5.7-8.2 g/dL Albumin 3.3 3.2-4.8 g/dL Lactic Acid Level 1.5 0.4-2.0 mmol/L Magnesium Level 2.0 1.6-2.6 mg/dL Creatine Kinase 600 H 46-171 U/L Plasma/Serum Blood Alcohol < 3.0 <10 mg/dL Problems(with codes): (1) Right arm weakness (2) Elevated liver enzymes (3) Radial nerve palsy (4) Rhabdomyolysis (5) Methamphetamine abuse (6) Alcohol abuse Plan/Recommendation Plan Check UA; IV bicarb was there was evidence of rhabdomyolysis Check hepatitis panel Right upper quadrant ultrasound Continue to monitor labs Patient may need to be under the care of an ID specialist for his HIV status Patient will be counseled to discontinue alcohol and substance abuse Plan discussed with: Patient, Other DIMAS MAE MD Sep 22, 2024 11:57
--- NOTE | 2024-09-22 17:19 | DVHPN2 ---
Subjective I am assuming the care of the patient from today onwards CT abdomen and pelvis is pending. Reviewed: Care Plan Changes from previous H/P or p: No Changes Eyes: No Pain, No Vision change, No Conjunctivae inflammation, No Eyelid inflammation, No Other, No Redness ENT: No Ear pain, No Ear discharge, No Nose pain, No Nose discharge, No Nose congestion, No Mouth pain, No Mouth swelling, No Throat pain, No Throat swelling, No Other Cardiovascular: No Chest Pain, No Palpitations, No Orthopnea, No Paroxysmal Noc. Dyspnea, No Edema, No Lt Headedness, No Other Respiratory: No Cough, No Dry, No Shortness of breath, No SOB with excertion, No Wheezing, No Hemoptysis, No Pleuritic Pain, No Sputum, No Other Gastrointestinal: No Nausea, No Vomiting, No Abdominal Pain, No Diarrhea, No Constipation, No Melena, No Hematochezia, No Other Genitourinary: No Dysuria, No Frequency, No Incontinence, No Hematuria, No Retention, No Other Musculoskeletal: other (Right arm weakness); No neck pain, No shoulder pain, No arm pain, No back pain, No hand pain, No leg pain, No foot pain Skin: No Rash, No Lesions, No Jaundice, No Bruising, No Other Objective Vitals Vital Signs Date Time Temp Pulse Resp B/P (MAP) Pulse Ox O2 Delivery O2 Flow Rate FiO2 09/22/24 13:00 97.6 60 16 106/61 (76) 96 97.6 09/22/24 01:33 Room Air* 0 21 Intake/Output Intake and Output 09/22/24 07:00 Intake Total 450 ml Output Total 1500 ml Balance -1050 ml Intake Oral 450 ml Output Urine Total 1500 ml Exam HEENT pupils are reactive Neck is supple CV is S1-S2 regular rate and rhythm Respiratory diminished breath sounds bases GI positive bowel sound Extremity no edema ENVIRONMENTAL REMEDIATION ENGINEER no motor deficit Medications Current Medications Medications Dose Ordered Sig/Alex Route Start Time Stop Time Status Last Admin Dose Admin Sodium Chloride 1,000 ml @ 60 mls/hr [id number] IV 09/21/24 20:45 Acetaminophen/ Hydrocodone Bitart 1 tab Q4HP PRN PO 09/21/24 20:45 Ondansetron HCl 4 mg Q4HP PRN IV 09/21/24 20:45 Docusate Sodium 100 mg BIDPRN PRN PO 09/21/24 20:45 Morphine Sulfate 2 mg Q4HPRN PRN IV 09/21/24 20:45 Ibuprofen 600 mg Q6HP PRN PO 09/21/24 20:45 Nitroglycerin 0.4 mg Q5MINP PRN SL 09/21/24 23:00 Morphine Sulfate 2 mg Q30M PRN IV 09/21/24 23:00 Thiamine HCl 100 mg DAILY PO 09/23/24 10:00 Folic Acid 1 mg DAILY PO 09/23/24 10:00 Laboratory Results Laboratory Tests 09/22/24 06:39 Chemistry Test 09/22/24 06:39 Albumin 3.3 g/dL (3.2-4.8) Calcium Level 8.9 mg/dL (8.7-10.4) Total Protein 7.1 g/dL (5.7-8.2) LFT Test 09/22/24 06:39 Alanine Aminotransferase (ALT) 383 U/L (7-40) H Alkaline Phosphatase 127 U/L (46-116) H Aspartate Amino Transferase (AST) 226 U/L (13-40) H Total Bilirubin 0.5 mg/dL (0.2-1.0) Assessment/Plan Assessment/Plan 23-year-old male with a known history of HIV, attention deficit disorder, schizophrenia, chronic illicit drug use presented to the hospital with right arm pain found to have 1. Right arm pain/right radial nerve palsy 2. Acute rhabdomyolysis 3. Elevated LFTs 4. Schizophrenia 5. HIV 6. Attention deficit disorder 7. Chronic illicit drug use -trend LFTs, CT abdomen and pelvis, follow up GI recommendations, psychiatric social worker supervisor consultation for rehab outpatient for chronic illicit drug use. Plan discussed with: Other Date of Service: Sep 22, 2024 Billing Provider: JAYY LIANG MD Common Visit Codes: [id number] INP/OBS CARE(MOD) JAYY LIANG MD Sep 22, 2024 17:19
--- NOTE | 2024-09-22 18:09 | DVH ---
INDICATION: elevated liver tests TECHNIQUE: Multiple real-time sonographic images of the abdomen were obtained. COMPARISON: None FINDINGS: The liver is homogenous in echogenicity. The liver measures 17cm. No intrahepatic biliary ductal dilatation is noted. The gallbladder wall measures 0.3 cm and is unremarkable. no gallstones or sludge is seen. The com mon duct measures 0.4 cm and is unremarkable. No pericholecystic fluid is noted. The right kidney measures 10cm. No hydronephrosis. osis. Hypoechoic mass seen on pancreatic head measuring 3cm. The visualized portions of the IVC and aorta are grossly unremarkable. IMPRESSION: Hypoechoic mass seen on pancreatic head measuring 3cm. CT pancreatic mass protocol suggested.
[2024-09-23 01:00] VITALS: BP 104/46; PULSE 71; RESP 19; TEMP 97.9; O2SAT 98
[2024-09-23 05:00] VITALS: BP 115/60; PULSE 68; RESP 17; TEMP 97.7; O2SAT 99
[2024-09-23 08:39] VITALS: BP 103/61; PULSE 72; RESP 18; TEMP 97.7; O2SAT 97
[2024-09-23] MEDS: FOLIC ACID 1 MG TAB PO SCH (09:32)
[2024-09-23] MEDS: THIAMINE HCL 100 MG TAB PO SCH (09:32)
[2024-09-23 11:49] LABS: Urine Bacteria None Seen /hpf (None Seen); Urine Squamous Epithelial Cell None Seen /hpf (<5)
[2024-09-23 12:35] LABS: Amphetamine Screen, Urine Neg (NEGATIVE)
[2024-09-23 12:47] LABS: Barbiturate Scree,Urine Neg (NEGATIVE); Benzodiazephine Screen, Urine Neg (NEGATIVE); Cannabinoid Screen, Urine Neg (NEGATIVE); Cocaine Screen, Urine Neg (NEGATIVE); Opiate Scree,Urine Neg (NEGATIVE); Phencyclidine Screen, Urine Neg (NEGATIVE)
[2024-09-23 12:52] VITALS: BP 117/54; PULSE 60; RESP 16; TEMP 98.4; O2SAT 98
[2024-09-23 13:01] LABS: Urine WBC <1 /hpf (0 - 3)
[2024-09-23 13:48] LABS: INR 1.07 (0.9-1.15); Prothrombin Time 11.3 sec (9.3-11.8)
[2024-09-23 13:51] LABS: Albumin 3.5 g/dL (3.2-4.8); Anion Gap 7 (5-15); BUN/Creatinine Ratio 14.7 (10.0-20.0); Blood Urea Nitrogen 11 mg/dL (9-23); Calcium 9.2 mg/dL (8.7-10.4); Carbon Dioxide 23 mmol/L (20-31); Chloride 105 mmol/L (98-107); Potassium 4.2 mmol/L (3.5-5.1)
[2024-09-23 13:52] LABS: Bilirubin, Total 0.4 mg/dL (0.2-1.0); Total Protein 7.6 g/dL (5.7-8.2)
[2024-09-23 13:59] LABS: Alanine Aminotransferase 360 U/L (7-40); Alkaline Phosphatase 128 U/L (46-116); Aspartate Aminotransferase 214 U/L (13-40); Glucose 124 mg/dL (74-106); Sodium 135 mmol/L (136-145)
[2024-09-23 15:13] LABS: Hepatitis B Core Total AB React (Negative)
[2024-09-23 15:20] LABS: Hepatitis A Total Antibody Positive (Negative)
[2024-09-23 15:21] LABS: Hepatitis B Surface Antibody Positive (Negative); Hepatitis B Surface Antigen Negative (Negative)
[2024-09-23 15:24] LABS: Hepatitis C Antibody Reactive (Negative)
--- NOTE | 2024-09-23 15:57 | DVHPN2 ---
Subjective Ultrasound abdomen report noted which shows evidence of 3 cm pancreatic mass, CT abdomen with pancreatic protocol has been ordered. Reviewed: Care Plan Changes from previous H/P or p: No Changes Eyes: No Pain, No Vision change, No Conjunctivae inflammation, No Eyelid inflammation, No Other, No Redness ENT: No Ear pain, No Ear discharge, No Nose pain, No Nose discharge, No Nose congestion, No Mouth pain, No Mouth swelling, No Throat pain, No Throat swelling, No Other Cardiovascular: No Chest Pain, No Palpitations, No Orthopnea, No Paroxysmal Noc. Dyspnea, No Edema, No Lt Headedness, No Other Respiratory: No Cough, No Dry, No Shortness of breath, No SOB with excertion, No Wheezing, No Hemoptysis, No Pleuritic Pain, No Sputum, No Other Gastrointestinal: No Nausea, No Vomiting, No Abdominal Pain, No Diarrhea, No Constipation, No Melena, No Hematochezia, No Other Genitourinary: No Dysuria, No Frequency, No Incontinence, No Hematuria, No Retention, No Other Musculoskeletal: other (Right arm weakness); No neck pain, No shoulder pain, No arm pain, No back pain, No hand pain, No leg pain, No foot pain Skin: No Rash, No Lesions, No Jaundice, No Bruising, No Other Objective Vitals Vital Signs Date Time Temp Pulse Resp B/P (MAP) Pulse Ox O2 Delivery O2 Flow Rate FiO2 09/23/24 12:52 98.4 60 16 117/54 (75) 98 98.4 09/23/24 08:16 Room Air* 0 21 Intake/Output Intake and Output 09/23/24 07:00 Intake Total 3880 ml Output Total 1525 ml Balance 2355 ml Intake Oral 3880 ml Output Urine Total 1525 ml # Voids 2 Exam HEENT pupils are reactive Neck is supple CV is S1-S2 regular rate and rhythm Respiratory diminished breath sounds bases GI positive bowel sound Extremity no edema DOCTOR OF NURSE ANESTHESIA no motor deficit Medications Current Medications Medications Dose Ordered Sig/Alex Route Start Time Stop Time Status Last Admin Dose Admin Sodium Chloride 1,000 ml @ 60 mls/hr [id number] IV 09/21/24 20:45 09/23/24 06:16 60 MLS/HR Acetaminophen/ Hydrocodone Bitart 1 tab Q4HP PRN PO 09/21/24 20:45 Ondansetron HCl 4 mg Q4HP PRN IV 09/21/24 20:45 Docusate Sodium 100 mg BIDPRN PRN PO 09/21/24 20:45 Morphine Sulfate 2 mg Q4HPRN PRN IV 09/21/24 20:45 Ibuprofen 600 mg Q6HP PRN PO 09/21/24 20:45 Nitroglycerin 0.4 mg Q5MINP PRN SL 09/21/24 23:00 Morphine Sulfate 2 mg Q30M PRN IV 09/21/24 23:00 Thiamine HCl 100 mg DAILY PO 09/23/24 10:00 09/23/24 09:32 100 MG Folic Acid 1 mg DAILY PO 09/23/24 10:00 09/23/24 09:32 1 MG Laboratory Results Laboratory Tests 09/22/24 06:39 09/23/24 13:08 Chemistry Test 09/23/24 13:08 Albumin 3.5 g/dL (3.2-4.8) Calcium Level 9.2 mg/dL (8.7-10.4) Total Protein 7.6 g/dL (5.7-8.2) Coagulation Test 09/23/24 13:08 Prothrombin Time 11.3 sec (9.3-11.8) Prothrombin Time INR 1.07 (0.9-1.15) LFT Test 09/23/24 13:08 Alanine Aminotransferase (ALT) 360 U/L (7-40) H Alkaline Phosphatase 128 U/L (46-116) H Aspartate Amino Transferase (AST) 214 U/L (13-40) H Total Bilirubin 0.4 mg/dL (0.2-1.0) Urinalysis Test 09/23/24 11:16 Urine RBC None seen /hpf (0 - 3) Urine WBC <1 /hpf (0 - 3) Urine Squamous Epithelial Cells None seen /hpf (<5) Urine Bacteria None seen /hpf (None Seen) Assessment/Plan Assessment/Plan 23-year-old male with a known history of HIV, attention deficit disorder, schizophrenia, chronic illicit drug use presented to the hospital with right arm pain found to have 1. Right arm pain/right radial nerve palsy 2. Acute rhabdomyolysis 3. Elevated LFTs 4. Schizophrenia 5. HIV 6. Attention deficit disorder 7. Chronic illicit drug use 8. Pancreatic mass -trend LFTs, CT abdomen and pelvis with pancreatic protocol, follow up GI recommendations, adoption social worker consultation for rehab outpatient for chronic illicit drug use. Plan discussed with: Patient My Orders Orders - JAYY LIANG MD Procedure Category Date Status Time Ct Abd Pelvis W CT 09/23/24 Logged Con-Oral & Iv 13:54 Date of Service: Sep 23, 2024 Billing Provider: JAYY LIANG MD Common Visit Codes: [id number] INP/OBS CARE(MOD) JAYY LIANG MD Sep 23, 2024 15:56
[2024-09-23 17:00] VITALS: BP 123/60; PULSE 63; RESP 18; TEMP 98; O2SAT 97
[2024-09-23] MEDS ORDERED: GASTROGRAFIN 120 ML SOL ONE (18:02)
[2024-09-23] MEDS ORDERED: GASTROGRAFIN 30 ML SOL ONE (18:06)
[2024-09-23] MEDS ORDERED: IOHEXOL 300 MG/ML 100ML BOTTLE IJ ONE (20:53)
[2024-09-23 21:00] VITALS: BP 103/67; PULSE 67; RESP 18; TEMP 97.8; O2SAT 98
--- NOTE | 2024-09-23 21:57 | DVH ---
Exam: CT CT ABD PELVIS W CON-ORAL IV History: Pancreatic mass Comparison Study: None available at time of dictation. Contrast: Type of contrast: Omnipaque 350 Contrast injected: 100 cc Contrast wasted: 0 TECHNIQUE: A digital garage mechanic image was obtained. During the uneventful, intravenous administration of c ontrast material, multislice data acquisition was obtained through the abdomen and pelvis. The data s et was subsequently reconstructed into axial images. Images were reviewed on a work station using a c ombination of axial and multiplanar using a variety of window levels and settings. Radiation Dose Information: CT Dose: CTDI volume is 6.05 mGy. Dose-length product is 1112.41 mGy*cm FINDINGS: Lung Bases: No acute or significant lung base finding. Normal heart size. No pleural or pericardial effusion. Liver: The liver is normal in size. No focal lesions. Normal hepatic vascular enhancement. Gallbladder and Biliary Tree: Unremarkable Spleen: Unremarkable Pancreas: The pancreas is normal in appearance without focal lesions or abnormal enhancement. Adrenal Glands: Unremarkable Kidneys: Kidneys demonstrate normal symmetric enhancement without focal lesions, calculi or hydroneph rosis. Bladder: Unremarkable Bowel: The stomach is grossly normal in appearance. Small bowel and colon are normal in caliber and d istribution. The appendix is not visualized; however, no secondary findings of acute appendicitis id entified. Ascites: Absent Lymphadenopathy: No mesenteric, retroperitoneal or periportal lymphadenopathy. Abdominal Wall and Mesentery: Unremarkable. Vasculature: The visualized abdominal aorta is normal in size and caliber. Abdominal and pelvic vess els demonstrate normal enhancement. Pelvic Organs: Unremarkable Musculoskeletal: No aggressive focal bony lesions, acute fractures or dislocation. Soft tissues: Unremarkable. IMPRESSION: 1. No acute abnormality in the abdomen or pelvis. 2. No calcified gallstones: 3. No findings of bowel obstruction however there is a large stool burden throughout the colon. 4. Questionable 3.2 cm hypodense mass in the head of the pancreas. Recommend MRI for further evaluati on. All CT scans at this medical facility are performed using dose modulation techniques as appropriate t o a performed exam including the following: Automated exposure control was utilized; adjustment of th e MA and/or KV according to patient size; and use of iterative reconstruction technique.
[2024-09-24 09:00] VITALS: BP 101/68; PULSE 68; RESP 17; TEMP 97.9; O2SAT 98
[2024-09-24 12:58] VITALS: BP 106/66; PULSE 61; RESP 17; TEMP 98.4; O2SAT 98
--- NOTE | 2024-09-24 16:47 | DVHPN2 ---
Progress Note Date Seen: Sep 23, 2024 Resident Creating Document: CHAS FLORES RESIDENT Has the PT tested + for MRSA If YES, has PT been informed?: No Medical Necessity Reason Pt with a Central, PICC or Fol: No Medical Necessity Reason elevated liver enzymes Subjective Review of Systems Date of service was on 09/23/2024 This is a 23-year-old male with past medical history of HIV, ADHD, polysubstance abuse, and depression and newly diagnosed schizophrenia presented to [facility] ED with complaint of right arm weakness via EMS on 09/23/2023. Patient has a history of methamphetamine and alcohol abuse. Patient denies chest pain,headache, dizziness, diaphoresis, shortness of breaths, nausea, vomiting, fever, chills. Initial vitals were BP 106/72,HR 84, temp97.8 FiO2 saturation 98% on room air. Initial lab data revealed WBC 6.2, platelets 235, sodium 138, potassium 3.6, BUN 18, creatinine 1.01, GFR 106, glucose 116, AST 267, ALT 440, CK 600.Head CT showed no acute intracranial hemorrhage. Cervical neck CT has no evidence of acute cervical spine fracture or traumatic malalignment.GI was consulted because elevation in liver enzymes which are trending down. His creatinine kinase was also elevated suggestive of possible mild rhabdomyolysis 09/23/2024: Upon speaking to the patient today, he said that he has just started taking a new medication (Olanzapine) for the newly diagnosed schizophrenia. This was prescribe to him about 7 days ago. He denies any nausea vomiting abdominal pain hematochezia or melena stool. Patient did mentioned that he is hungry wanted to eat. Liver enzymes today showed T.bilirubin: 0.4, AST: 214,ALT: 360, ALT: 128. Serology report showed Hep. B antibody reactive and Hep. A antibody reactive. US abdomen showed Hypoechoic mass seen on pancreatic head measuring 3cm. CT Abdomen shows Pancreas: The pancreas is normal in appearance without focal lesions or abnormal enhancement. Objective vital signs Vital Sign Date Time Temp Pulse Resp B/P (MAP) Pulse Ox O2 Delivery O2 Flow Rate FiO2 09/24/24 12:58 98.4 61 17 106/66 (79) 98 98.4 09/24/24 08:18 Room Air* 0 21 Total Intake and Output 09/23/24 09/23/24 09/24/24 15:00 23:00 07:00 Intake Total 1680 ml 3280 ml 704 ml Output Total 2600 ml Balance 1680 ml 680 ml 704 ml Examination General examination- Not in acute distress HEENT: PEERLA, no acute nasal discharge Chest: S1-S2 audible, rate and rhythm regular, no murmur Lung: CTAB, no wheeze or rhonchi Abdomen: Nondistended, BS+, nontender, no organomegaly Musculoskeletal: no acute joint swelling or tenderness Lower extremity: no leg edema Neurological: cranial nerves intact, no acute dysarthria or dysphagia Psychiatry-- Normal mood and affect Skin- no acute rash or purpura laboratory and microbiology Laboratory Tests 09/23/24 13:08 09/22/24 06:39 Test 09/23/24 13:08 Range/Units Serum Glucose 124 H 74-106 mg/dL Problem List/Assessment/Plan Problem List/Assessment/Plan Elevated liver enzymes Acute Rhabdomyolysis Polysubstance abuser Alcohol abuse Schizophrenia HIV Right arm weakness Radial nerve palsy Hep. C reactive Hep. A reactive Pancreatic mass Plan/Recommendation Monitor labs daily Patient may need to be under the care of an ID specialist for his HIV status Patient will be counseled to discontinue alcohol and substance abuse Patient advise to follow up at the GI clinic for further Hep C work up and management Goal of care discussed for more than 35 minutes Case and plan discussed with Dr. Menezes Thank you for allowing us to participate in the care of this patient. Please call if you have any questions or concerns. Plan discussed with: Patient AYALACHAS HARMAN RESIDENT Sep 24, 2024 16:46
== END 2024-09-24 14:45 | disposition left against medical advice (07) | DRG 48 ==
LOC: EDBD 12:24 → EDUNIT# 12:24 → ER 12:24 → OVERFLOW 22:49 → WEST WING 09-22 01:52
PROVIDERS: ADMIT Nurse Practitioner Family; ATTEND Nurse Practitioner Acute Care
DX: G56.31 Lesion of radial nerve, right upper limb (principal); B20 Human immunodeficiency virus [HIV] disease; M62.82 Rhabdomyolysis; F20.9 Schizophrenia, unspecified; F98.8 Other specified behavioral and emotional disorders with onset usually occurring in childhood and adolescence; B19.20 Unspecified viral hepatitis C without hepatic coma; B15.9 Hepatitis A without hepatic coma; F32.A Depression, unspecified; R79.89 Other specified abnormal findings of blood chemistry; F19.10 Other psychoactive substance abuse, uncomplicated; K86.9 Disease of pancreas, unspecified; R74.8 Abnormal levels of other serum enzymes; F10.10 Alcohol abuse, uncomplicated; F15.10 Other stimulant abuse, uncomplicated; Y90.9 Presence of alcohol in blood, level not specified; Z53.29 Procedure and treatment not carried out because of patient's decision for other reasons
CPT/HCPCS: 36415; 70450; 72125; 73110; 74177; 76705; 80053; 80307; 80320; 81015; 82390; 82550; 82728; 83605; 83735; 85025; 85610; 86704; 86706; 86708; 86803; 87340; G0378